=== PATIENT | female | born 1990 | race American Indian/Alaskan Native ===

== ENCOUNTER 2020-02-26 12:25 | Emergency (ER) | payer BC ==
--- NOTE | 2020-02-26 12:58 | Event Note ---
ED Screening Note Date of service: 02/26/20 Time: 12:57 ED Screening Note: Patient complains of substernal chest pain ongoing since last night She denies any shortness of breath, leg pain/swelling, recent long travel via car ride/plane ride, or history of heart/lung issues Patient also denies any cough or fever This initial assessment/diagnostic orders/clinical plan/treatment(s) is/are subject to change based on patients health status, clinical progression and re- assessment by fellow clinical providers in the ED. Further treatment and workup at subsequent clinical providers discretion. Patient/guardian urged not to elope from the ED as their condition may be serious if not clinically assessed and managed. Initial orders include: Chest x-ray Labs
[2020-02-26 14:39] LABS: Hematocrit 43.2 % (30.3-42.9); Hemoglobin 14.3 gm/dl (10.1-14.3); Mean Corpuscular HGB Conc 33 % (30-34); Mean Corpuscular Volume 91 fl (79-97); Platelet Count 233 K/mm3 (140-440); Red Blood Count 4.76 M/mm3 (3.65-5.03)
[2020-02-26 15:00] LABS: Alanine Aminotransferase 17 units/L (7-56); Albumin 4.3 g/dL (3.9-5); BUN/Creatinine Ratio 17; Blood Urea Nitrogen 12 mg/dL (7-17); Calcium 9.3 mg/dL (8.4-10.2); Hemolysis Index 25
[2020-02-26 15:32] LABS: Total Cells Counted 100
[2020-02-26 15:33] LABS: Large Platelets Few; Macrocytosis Few; Platelet Estimate Consistent w Auto
--- NOTE | 2020-02-26 16:14 | XRay Report ---
CHEST 2 VIEWS INDICATION / CLINICAL INFORMATION: chest pain. COMPARISON: None available. FINDINGS: SUPPORT DEVICES: None. HEART / MEDIASTINUM: No significant abnormality. LUNGS / PLEURA: No significant pulmonary or pleural abnormality. No pneumothorax. ADDITIONAL FINDINGS: No significant additional findings. IMPRESSION: 1. No acute findings. Signer Name: Alpesh Bell MD Signed: 02/26/2020 4:10 PM Workstation Name: [id number]
--- NOTE | 2020-02-26 16:17 | Emergency Department Report ---
ED Chest Pain HPI - General Chief Complaint: Chest Pain Stated Complaint: CP PUI?: No Time Seen by Provider: 02/26/20 12:54 Source: patient Mode of arrival: Ambulatory Limitations: No Limitations - History of Present Illness Initial Comments: This is a 30-year-old female with no prior medical history presents the ED complaining of midsternal chest pain that started yesterday. Patient states that pain is localized to the mid sternal region with nonradiating elsewhere. Patient states pain is like a cramping and sharp type pain She denies fever/chills/nausea vomiting/cough/shortness of breath MD Complaint: chest pain - Related Data Previous Rx's Medication Instructions Recorded Last Taken Type Naproxen [Naprosyn] 500 mg PO BID #30 tablet 02/26/20 Unknown Rx Allergies Allergy/AdvReac Type Severity Reaction Status Date / Time No Known Allergies Allergy Unverified 02/26/20 12:26 Heart Score - HEART Score History: Slightly suspicious EKG: Normal Age: < 45 Risk factors: No known risk factors Troponin: < normal limit HEART Score: 0 ED Review of Systems ROS: Stated complaint: CP Other details as noted in HPI Comment: All other systems reviewed and negative ED Past Medical Hx - Past Medical History Previous Medical History?: No - Surgical History Past Surgical History?: No - Social History Smoking Status: Current Some Day Smoker Substance Use Type: Alcohol - Medications Home Medications: Home Medications Medication Instructions Recorded Confirmed Last Taken Type Naproxen [Naprosyn] 500 mg PO BID #30 tablet 02/26/20 Unknown Rx ED Physical Exam - General Limitations: No Limitations General appearance: alert, in no apparent distress - Head Head exam: Present: atraumatic, normocephalic - Eye Eye exam: Present: normal appearance - ENT ENT exam: Present: mucous membranes moist - Neck Neck exam: Present: normal inspection - Respiratory Respiratory exam: Present: normal lung sounds bilaterally. Absent: respiratory distress - Cardiovascular Cardiovascular Exam: Present: regular rate, normal rhythm. Absent: systolic murmur, diastolic murmur, rubs, gallop - GI/Abdominal GI/Abdominal exam: Present: soft, normal bowel sounds - Extremities Exam Extremities exam: Present: normal inspection - Back Exam Back exam: Present: normal inspection - Neurological Exam Neurological exam: Present: alert, oriented X3 - Psychiatric Psychiatric exam: Present: normal affect, normal mood - Skin Skin exam: Present: warm, dry, intact, normal color. Absent: rash ED Course Vital Signs 02/26/20 12:54 Temperature 98.6 F Pulse Rate 76 Blood Pressure 139/86 LATESHA score - Latesha Score Age > 65: (0) No Aspirin use within the Past 7 Days: (0) No 3 or more CAD Risk Factors: (0) No 2 or more Angina events in past 24 hrs: (0) No Known CAD with more than 50% Stenosis: (0) No Elevated Cardiac Markers: (0) No ST Deviation Greater than 0.5mm: (0) No LATESHA Score: 0 ED Medical Decision Making - Lab Data Result diagrams: 02/26/20 14:19 02/26/20 14:19 Laboratory Last Values WBC 9.5 K/mm3 (4.5-11.0) 02/26/20 14:19 RBC 4.76 M/mm3 (3.65-5.03) 02/26/20 14:19 Hgb 14.3 gm/dl (10.1-14.3) 02/26/20 14:19 Hct 43.2 % (30.3-42.9) H 02/26/20 14:19 MCV 91 fl (79-97) 02/26/20 14:19 MCH 30 pg (28-32) 02/26/20 14:19 MCHC 33 % (30-34) 02/26/20 14:19 RDW 14.0 % (13.2-15.2) 02/26/20 14:19 Plt Count 233 K/mm3 (140-440) 02/26/20 14:19 Add Manual Diff Complete 02/26/20 14:19 Total Counted 100 02/26/20 14:19 Seg Neuts % (Manual) 52.0 % (40.0-70.0) 02/26/20 14:19 Band Neutrophils % 0 % 02/26/20 14:19 Lymphocytes % (Manual) 37.0 % (13.4-35.0) H 02/26/20 14:19 Reactive Lymphs % (Man) 0 % 02/26/20 14:19 Monocytes % (Manual) 8.0 % (0.0-7.3) H 02/26/20 14:19 Eosinophils % (Manual) 2.0 % (0.0-4.3) 02/26/20 14:19 Basophils % (Manual) 1.0 % (0.0-1.8) 02/26/20 14:19 Metamyelocytes % 0 % 02/26/20 14:19 Myelocytes % 0 % 02/26/20 14:19 Promyelocytes % 0 % 02/26/20 14:19 Blast Cells % 0 % 02/26/20 14:19 Nucleated RBC % Not Reportable 02/26/20 14:19 Seg Neutrophils # Man 4.9 K/mm3 (1.8-7.7) 02/26/20 14:19 Band Neutrophils # 0.0 K/mm3 02/26/20 14:19 Lymphocytes # (Manual) 3.5 K/mm3 (1.2-5.4) 02/26/20 14:19 Abs React Lymphs (Man) 0.0 K/mm3 02/26/20 14:19 Monocytes # (Manual) 0.8 K/mm3 (0.0-0.8) 02/26/20 14:19 Eosinophils # (Manual) 0.2 K/mm3 (0.0-0.4) 02/26/20 14:19 Basophils # (Manual) 0.1 K/mm3 (0.0-0.1) 02/26/20 14:19 Metamyelocytes # 0.0 K/mm3 02/26/20 14:19 Myelocytes # 0.0 K/mm3 02/26/20 14:19 Promyelocytes # 0.0 K/mm3 02/26/20 14:19 Blast Cells # 0.0 K/mm3 02/26/20 14:19 WBC Morphology Not Reportable 02/26/20 14:19 Hypersegmented Neuts Not Reportable 02/26/20 14:19 Hyposegmented Neuts Not Reportable 02/26/20 14:19 Hypogranular Neuts Not Reportable 02/26/20 14:19 Smudge Cells Not Reportable 02/26/20 14:19 Toxic Granulation Not Reportable 02/26/20 14:19 Toxic Vacuolation Not Reportable 02/26/20 14:19 Dohle Bodies Not Reportable 02/26/20 14:19 Pelger-Huet Anomaly Not Reportable 02/26/20 14:19 Heath Rods Not Reportable 02/26/20 14:19 Platelet Estimate Consistent w auto 02/26/20 14:19 Clumped Platelets Not Reportable 02/26/20 14:19 Plt Clumps, EDTA Not Reportable 02/26/20 14:19 Large Platelets Few 02/26/20 14:19 Giant Platelets Not Reportable 02/26/20 14:19 Platelet Satelliting Not Reportable 02/26/20 14:19 Plt Morphology Comment Not Reportable 02/26/20 14:19 RBC Morphology Not Reportable 02/26/20 14:19 Dimorphic RBCs Not Reportable 02/26/20 14:19 Polychromasia Not Reportable 02/26/20 14:19 Hypochromasia Not Reportable 02/26/20 14:19 Poikilocytosis Not Reportable 02/26/20 14:19 Anisocytosis Not Reportable 02/26/20 14:19 Microcytosis Not Reportable 02/26/20 14:19 Macrocytosis Few 02/26/20 14:19 Spherocytes Not Reportable 02/26/20 14:19 Pappenheimer Bodies Not Reportable 02/26/20 14:19 Sickle Cells Not Reportable 02/26/20 14:19 Target Cells Not Reportable 02/26/20 14:19 Tear Drop Cells Not Reportable 02/26/20 14:19 Ovalocytes Not Reportable 02/26/20 14:19 Helmet Cells Not Reportable 02/26/20 14:19 [place] Bodies Not Reportable 02/26/20 14:19 [place] Rings Not Reportable 02/26/20 14:19 [place] Cells Not Reportable 02/26/20 14:19 Bite Cells Not Reportable 02/26/20 14:19 Crenated Cell Not Reportable 02/26/20 14:19 Elliptocytes Not Reportable 02/26/20 14:19 Acanthocytes (Spur) Not Reportable 02/26/20 14:19 Rouleaux Not Reportable 02/26/20 14:19 Hemoglobin C Crystals Not Reportable 02/26/20 14:19 Schistocytes Not Reportable 02/26/20 14:19 Malaria parasites Not Reportable 02/26/20 14:19 Prasanth Bodies Not Reportable 02/26/20 14:19 Hem Pathologist Commnt No 02/26/20 14:19 Sodium 139 mmol/L (137-145) 02/26/20 14:19 Potassium 3.9 mmol/L (3.6-5.0) 02/26/20 14:19 Chloride 101.4 mmol/L (98-107) 02/26/20 14:19 Carbon Dioxide 26 mmol/L (22-30) 02/26/20 14:19 Anion Gap 16 mmol/L 02/26/20 14:19 BUN 12 mg/dL (7-17) 02/26/20 14:19 Creatinine 0.7 mg/dL (0.7-1.2) 02/26/20 14:19 Estimated GFR > 60 ml/min 02/26/20 14:19 BUN/Creatinine Ratio 17 % 02/26/20 14:19 Glucose 91 mg/dL (65-100) 02/26/20 14:19 Calcium 9.3 mg/dL (8.4-10.2) 02/26/20 14:19 Total Bilirubin 0.60 mg/dL (0.1-1.2) 02/26/20 14:19 AST 20 units/L (5-40) 02/26/20 14:19 ALT 17 units/L (7-56) 02/26/20 14:19 Alkaline Phosphatase 63 units/L (35-129) 02/26/20 14:19 Troponin T < 0.010 ng/mL (0.00-0.029) 02/26/20 14:19 Total Protein 7.5 g/dL (6.3-8.2) 02/26/20 14:19 Albumin 4.3 g/dL (3.9-5) 02/26/20 14:19 Albumin/Globulin Ratio 1.3 % 02/26/20 14:19 - EKG Data EKG shows normal: sinus rhythm Rate: normal - EKG Data Interpretation: normal EKG - Radiology Data Radiology results: report reviewed, image reviewed - Medical Decision Making 30-year-old female presents with midsternal chest pain most likely secondary to costochondritis All labs within normal limits troponin negative EKG within normal limits, chest x-ray normal. I discussed all findings with the patient. I discussed with patient to follow- up with primary care physician. Discussed NSAIDs for pain. Vital signs are normal and she is in no acute or respiratory distress. Critical care attestation.: If time is entered above; I have spent that time in minutes in the direct care of this critically ill patient, excluding procedure time. ED Disposition Clinical Impression: Costochondral chest pain Disposition: TO HOME OR SELFCARE Is pt being admited?: No Does the pt Need Aspirin: No Condition: Stable Instructions: Chest Pain (ED), Costochondritis (ED) Additional Instructions: Make sure to follow up with the primary care physician as discussed. Take all your medications as you've been prescribed. If you have any worsening symptoms or develop new symptoms please return to ED immediately. Prescriptions: Naproxen [Naprosyn] 500 mg PO BID #30 tablet Referrals: PRIMARY CARE, [Primary Care Provider] - 3-5 Days [facility] [Outside] - 3-5 Days [facility] [Outside] - 3-5 Days Forms: Work/School Release Form(ED) Time of Disposition: 16:27
[2020-02-26 16:58] VITALS: BP 124/70
== END 2020-02-26 16:53 | disposition home or self-care (01) ==
LOC: ED 12:25
DX: M94.0 Chondrocostal junction syndrome [Tietze] (principal); F17.200 Nicotine dependence, unspecified, uncomplicated; Z79.899 Other long term (current) drug therapy
CPT/HCPCS: 36415; 71046; 80053; 84484; 85007; 85025; 99283

== ENCOUNTER 2020-05-20 02:25 | Emergency (ER) | payer BC ==
[2020-05-20 02:48] VITALS: BP 136/81
[2020-05-20 04:10] LABS: HCG Qualitative,Urine Negative (Negative)
== END 2020-05-20 04:15 | disposition left against medical advice (07) ==
LOC: ED 02:25
DX: R07.89 Other chest pain (principal); Z53.21 Procedure and treatment not carried out due to patient leaving prior to being seen by health care provider
CPT/HCPCS: 81025; 93005